=== PATIENT | female | born 1985 | race Caucasian/White ===

== ENCOUNTER 2020-02-15 19:53 | Emergency (ER) | payer MEDICAID ==
[2020-02-15] MEDS ORDERED: Ondansetron 4 MG/2 ML SDV IVPUSH STA (20:31)
--- NOTE | 2020-02-15 20:35 | EDM.PDOC ---
ED HPI GENERAL MEDICAL PROBLEM - General Chief Complaint: Gastrointestinal Problem Stated Complaint: RECTAL BLEEDING Time Seen by Provider: 02/15/20 19:56 Source of Information: Reports: Patient History Limitations: Reports: No Limitations - History of Present Illness INITIAL COMMENTS - FREE TEXT/NARRATIVE: This is a 34-year-old female. She comes tonight because she noted some bright red blood on the tissue after having a bowel movement and there was blood in the bowl. This is been going on for the last couple of weeks but got worse tonight. She had the same or similar episode last year. She does have a history of H. pylori as well as infectious colitis. She has been feeling bloated weak and tired today and she complains of left lower quadrant abdominal pain and some nausea but no vomiting. She has had a full hysterectomy and over ectomy and she has a history of endometriosis. She has had an appendectomy, gallbladder removal. She denies Fever or chills. Left Lower Abdomen Pain Score (Numeric/FACES): 7 - Related Data Allergies Allergy/AdvReac Type Severity Reaction Status Date / Time bupropion [From Wellbutrin] Allergy Shortness Verified 02/15/20 20:08 of Breath latex Allergy Shortness Verified 02/15/20 20:08 of Breath milk Allergy Shortness Verified 02/15/20 20:08 of Breath Penicillins Allergy Shortness Verified 02/15/20 20:08 of Breath Sulfa (Sulfonamide Allergy Shortness Verified 02/15/20 20:08 Antibiotics) of Breath topiramate [From Topamax] Allergy Shortness Verified 02/15/20 20:08 of Breath Home Meds: Home Meds ARIPiprazole [Abilify] 5 mg PO DAILY 02/15/20 [History] ClonazePAM [KlonoPIN] 1 mg PO BID PRN 02/15/20 [History] Hydrocortisone Acetate [Anusol-Hc] 25 mg RC BID #20 supp.rect 02/15/20 [Rx] Lisdexamfetamine Dimesylate [Vyvanse] 60 mg PO DAILY 02/15/20 [History] Past Medical History Cardiovascular History: Reports: CAD Respiratory History: Reports: Sleep Apnea, Other (See Below) Other Respiratory History: pulmonary hypertension - Infectious Disease History Infectious Disease History: Reports: None - Past Surgical History GI Surgical History: Reports: Appendectomy Female Surgical History: Reports: Hysterectomy, Oophorectomy, Other (See Below) Other Female Surgeries/Procedures: multiple procedures due to endometriosis Social & Family History - Tobacco Use Tobacco Use Status *Q: Current Every Day Tobacco User Years of Tobacco use: 26 Packs/Tins Daily: 0.2 - Caffeine Use Caffeine Use: Reports: None - Recreational Drug Use Recreational Drug Use: Yes Drug Use in Last 12 Months: Yes Recreational Drug Type: Reports: Marijuana/Hashish Other Recreational Drug Type: medicinal marijuana ED ROS GENERAL - Review of Systems Review Of Systems: See Below Constitutional: Reports: Weakness, Fatigue. Denies: Fever, Chills HEENT: Reports: No Symptoms Respiratory: Denies: Shortness of Breath, Cough Cardiovascular: Reports: No Symptoms Endocrine: Reports: No Symptoms GI/Abdominal: Reports: Abdominal Pain, Bloody Stool, Nausea. Denies: Constipation, Diarrhea, Vomiting : Denies: Discharge, Dysuria Musculoskeletal: Reports: No Symptoms Skin: Reports: No Symptoms Neurological: Reports: No Symptoms Psychiatric: Reports: No Symptoms Hematologic/Lymphatic: Reports: No Symptoms ED EXAM, GI/ABD - Physical Exam Exam: See Below Exam Limited By: No Limitations General Appearance: Alert, WD/WN, No Apparent Distress Eyes: Bilateral: Normal Appearance Ears: Normal External Exam Throat/Mouth: Normal Voice, No Airway Compromise Head: Normocephalic Neck: Supple Respiratory/Chest: No Respiratory Distress, Lungs Clear, Normal Breath Sounds Cardiovascular: Regular Rate, Rhythm, No Murmur GI/Abdominal Exam: Soft, Other (Bowel sounds are decreased in all 4 quadrants, she is not tender so much in the right lower quadrant or the right upper quadrant or the left upper quadrant however she is very tender in the left lower quadrant area this seems to be more diffuse than localized, there is guarding but no significant rebound or peritoneal symptoms.) Rectal (Female) Exam: Normal Exam, Other (She does have hemorrhoidal tags noted, good sphincter tone, no masses noted in the rectal vault, there was limited stool noted and Hemoccult was trace positive but no gross blood noted.) Back Exam: Full Range of Motion Extremities: Normal Inspection, Normal Range of Motion Neurological: Alert, Oriented Psychiatric: Normal Affect, Normal Mood Skin Exam: Warm, Dry Course - Vital Signs Last Recorded V/S: Last Vital Signs Temp 98 F 02/15/20 20:02 Pulse 100 02/15/20 20:02 Resp 18 02/15/20 20:02 BP 143/82 H 02/15/20 20:02 Pulse Ox 98 02/15/20 20:02 - Orders/Labs/Meds Orders: Active Orders 24 hr Category Date Time Status Abdomen Pelvis w Cont [CT] Stat Exams 02/15/20 20:27 Taken MISC TEST Stat Lab 02/15/20 20:18 Received Sodium Chloride 0.9% [Normal Saline] 100 ml Med 02/15/20 22:15 Active IV ASDIRECTED Sodium Chloride 0.9% [Saline Flush] Med 02/15/20 22:15 Active 10 ml FLUSH ASDIRECTED Medication Orders Sodium Chloride (Normal Saline) 100 mls @ 60 mls/hr IV ASDIRECTED VANESSA Last Admin: 02/15/20 22:18 Dose: 60 mls/hr Documented by: LYNN Sodium Chloride (Saline Flush) 10 ml FLUSH ASDIRECTED VANESSA Last Admin: 02/15/20 22:17 Dose: 10 ml Documented by: LYNN Labs: Laboratory Tests 02/15/20 02/15/20 Range/Units 20:18 20:18 WBC 12.01 H (3.98-10.04) K/mm3 RBC 5.32 H (3.98-5.22) M/mm3 Hgb 16.3 H (11.2-15.7) gm/dl Hct 49.4 H (34.1-44.9) % MCV 92.9 (79.4-94.8) fl MCH 30.6 (25.6-32.2) pg MCHC 33.0 (32.2-35.5) g/dl RDW Std Deviation 42.7 (36.4-46.3) fL Plt Count 272 (182-369) K/mm3 MPV 10.6 (9.4-12.3) fl Neut % (Auto) 53.4 (34.0-71.1) % Lymph % (Auto) 38.8 (19.3-51.7) % [place] % (Auto) 5.2 (4.7-12.5) % Eos % (Auto) 2.1 (0.7-5.8) Baso % (Auto) 0.3 (0.1-1.2) % Neut # (Auto) 6.41 H (1.56-6.13) K/mm3 Lymph # (Auto) 4.66 H (1.18-3.74) K/mm3 [place] # (Auto) 0.62 H (0.24-0.36) K/mm3 Eos # (Auto) 0.25 (0.04-0.36) K/mm3 Baso # (Auto) 0.04 (0.01-0.08) K/mm3 Manual Slide Review Normal smear Sodium 140 (136-145) mEq/L Potassium 3.9 (3.5-5.1) mEq/L Chloride 104 (98-107) mEq/L Carbon Dioxide 29 (21-32) mEq/L Anion Gap 10.9 (5-15) BUN 12 (7-18) mg/dL Creatinine 0.8 (0.55-1.02) mg/dL Est Cr Clr Drug Dosing 105.13 mL/min Estimated GFR (MDRD) > 60 (>60) mL/min BUN/Creatinine Ratio 15.0 (14-18) Glucose 95 (74-106) mg/dL Calcium 9.2 (8.5-10.1) mg/dL Total Bilirubin 0.2 (0.2-1.0) mg/dL AST 23 (15-37) U/L ALT 48 (14-59) U/L Alkaline Phosphatase 87 (46-116) U/L C-Reactive Protein 1.0 (<1.0) mg/dL Total Protein 7.5 (6.4-8.2) g/dl Albumin 3.7 (3.4-5.0) g/dl Globulin 3.8 gm/dL Albumin/Globulin Ratio 1.0 (1-2) Meds: Medications Generic Name Dose Route Start Last Admin Trade Name Freq PRN Reason Stop Dose Admin Sodium Chloride 100 mls @ 60 mls/hr 02/15/20 22:15 02/15/20 22:18 Normal Saline IV 60 mls/hr ASDIRECTED VANESSA Administration Sodium Chloride 10 ml 02/15/20 22:15 02/15/20 22:17 Saline Flush FLUSH 10 ml ASDIRECTED VANESSA Administration Discontinued Medications Generic Name Dose Route Start Last Admin Trade Name Freq PRN Reason Stop Dose Admin Iopamidol 100 ml 02/15/20 22:14 02/15/20 22:17 Isovue-300 (61%) IVPUSH 02/15/20 22:15 100 ml ONETIME ONE Administration Iopamidol 50 ml 02/15/20 22:14 02/15/20 22:17 Isovue-300 (61%) IVPUSH 02/15/20 22:15 50 ml ONETIME ONE Administration Ondansetron HCl 4 mg 02/15/20 20:31 02/15/20 20:35 Zofran IVPUSH 02/15/20 20:32 4 mg ONETIME STA Administration - Radiology Interpretation Free Text/Narrative:: CT scan of the abdomen and pelvis with p.o. and IV contrast shows no sign of acute intra-abdominal pathology. - Re-Assessments/Exams Free Text/Narrative Re-Assessment/Exam: 02/15/20 22:37 Spoke to the patient regarding the CT scan findings. I am not certain what the left lower quadrant abdominal tenderness means unless she still has endometriosis despite not having the uterus or ovaries. The blood that she is experiencing with bowel movements I believe is related to internal hemorrhoids. I have encouraged her to start on a stool softener and to not strain when she goes to the bathroom. I will also provide her with some Anusol HC suppositories and suggest some Tucks if the hemorrhoids are irritated or painful. She is going to follow-up with her family doctor for further evaluation and treatment this week. Departure - Departure Time of Disposition: 22:49 Disposition: Home, Self-Care 01 Condition: Good Clinical Impression: Internal hemorrhoids without complication, Endometriosis, Left lower quadrant abdominal pain - Discharge Information *PRESCRIPTION DRUG MONITORING PROGRAM REVIEWED*: Not Applicable *COPY OF PRESCRIPTION DRUG MONITORING REPORT IN PATIENT TABBY: Not Applicable Prescriptions: Hydrocortisone Acetate [Anusol-Hc] 25 mg RC BID #20 supp.rect Instructions: Endometriosis, Hemorrhoids, [place] Referrals: PCP,None [Primary Care Provider] - Forms: ED Department Discharge Additional Instructions: Use the Anusol HC suppositories as prescribed, you may use the Tucks as needed to help if there is a lot of soreness, start on some Colace capsules 1 twice a day to help keep the stools soft, do not strain when you are going to the bathroom but just sit there and let nature do its thing, follow-up with your family doctor later this week for recheck, return to the ER if needed Sepsis Event Note (ED) - Evaluation Sepsis Screening Result: No Definite Risk - Focused Exam Vital Signs: Vital Signs Temp Pulse Resp BP Pulse Ox 02/15/20 20:02 98 F 100 18 143/82 H 98 - My Orders Last 24 Hours: My Active Orders 02/15/20 20:18 MISC TEST Stat 02/15/20 20:27 Abdomen Pelvis w Cont [CT] Stat 02/15/20 22:15 Sodium Chloride 0.9% [Normal Saline] 100 ml IV ASDIRECTED Sodium Chloride 0.9% [Saline Flush] 10 ml FLUSH ASDIRECTED - Assessment/Plan Last 24 Hours: My Active Orders 02/15/20 20:18 MISC TEST Stat 02/15/20 20:27 Abdomen Pelvis w Cont [CT] Stat 02/15/20 22:15 Sodium Chloride 0.9% [Normal Saline] 100 ml IV ASDIRECTED Sodium Chloride 0.9% [Saline Flush] 10 ml FLUSH ASDIRECTED
[2020-02-15] MEDS ORDERED: Iopamidol 612 MG/ML 100 ML Bottle IVPUSH ONE (22:14)
[2020-02-15] MEDS ORDERED: Iopamidol 612 MG/ML 50 ML SDV IVPUSH ONE (22:14)
[2020-02-15] MEDS ORDERED: Sodium Chloride 0.9% 100 ML IV SCH (22:15)
[2020-02-15] MEDS ORDERED: Sodium Chloride 0.9% 10 ML Syringe FLUSH SCH (22:15)
--- NOTE | 2020-02-16 07:36 | CT ---
CT abdomen and pelvis Technique: Multiple axial sections were obtained from above the dome of the diaphragm inferiorly through the pubic symphysis. Intravenous and oral contrast was given. Delayed images were also obtained through the abdomen and pelvis. Comparison: No prior abdominal imaging is available. Findings: Visualized lung bases: Visualized lung bases show nothing acute. Liver and spleen: No discrete abnormality is appreciated. Surgical clips are seen from prior cholecystectomy. Adrenal glands: No nodule is seen. Pancreas: No discrete pancreatic abnormality is appreciated. Kidneys: Kidneys show symmetric contrast enhancement. Delayed images show contrast excretion into both ureters as well as within the bladder. Aorta, retroperitoneum and mesentery: Aorta shows no aneurysm. No retroperitoneal adenopathy or mesenteric abnormalities are appreciated. Bowel: Minimal increased stool within the colon is seen. No bowel wall thickening is appreciated. Pelvis: No pelvic mass or adenopathy is seen. Appendix is not visualized. No free fluid or inflammatory change is seen. Osseous: No acute osseous findings are appreciated. Impression: 1. Nothing acute is identified on CT study of the abdomen and pelvis. Diagnostic code #1 I agree with preliminary report from [facility], finalized on 02/15/20, 11:21 PM [employer]
== END 2020-02-15 23:02 | disposition home or self-care (01) ==
LOC: JD.ED 19:53
DX: K64.8 Other hemorrhoids (principal); N80.9 Endometriosis, unspecified; I25.10 Atherosclerotic heart disease of native coronary artery without angina pectoris; F17.210 Nicotine dependence, cigarettes, uncomplicated; Z91.040 Latex allergy status; Z88.0 Allergy status to penicillin; Z88.2 Allergy status to sulfonamides; Z91.011 Allergy to milk products; Z88.8 Allergy status to other drugs, medicaments and biological substances; Z79.899 Other long term (current) drug therapy
CPT/HCPCS: 36415; 74177; 80053; 85025; 86140; 96374; 99284; J2405; Q9967